=== PATIENT | female | born 1955 | race Caucasian/White ===

== ENCOUNTER 2016-08-19 16:14 | Emergency (ER) | payer OTHER ==
[2016-08-19 16:22] VITALS: TEMP 98.2; BMI 42.7
[2016-08-19 16:27] VITALS: BP 164/86
[2016-08-19] MEDS ORDERED: ZOFRAN 4 MG/2 ML IVP STA (16:40)
[2016-08-19] MEDS ORDERED: MORPHINE 2 MG/ML SYRINGE IVP STA (16:40)
[2016-08-19 16:46] LABS: BASOPHILS % (AUTO) 0.3 % (0.0-3.0); EOSINOPHILS # (AUTO) 0.1 K/ul (0.0-0.7); EOSINOPHILS % (AUTO) 1.3 % (0.0-7.0); HEMATOCRIT 39.8 % (37.0-47.0); HEMOGLOBIN 13.4 g/dl (12.0-16.0); IMMATURE GRANULOCYTE % (AUTO) 0.3 % (0.0-5.0); LYMPHOCYTES # (AUTO) 1.4 K/uL (0.60-3.4); LYMPHOCYTES % (AUTO) 23.1 (10.0-50.0); MEAN CORPUSCULAR HEMOGLOBIN 29.2 pg (27.0-31.0); MEAN CORPUSCULAR HGB CONC 33.7 (31.8-35.4); MEAN CORPUSCULAR VOLUME 86.7 fl (81.0-99.0); MONOCYTES # (AUTO) 0.4 K/uL (0.4-2.0); MONOCYTES % (AUTO) 6.9 (0-10); NEUTROPHILS # (AUTO) 4.2 K/ul (2.0-6.9); NEUTROPHILS % (AUTO) 68.1; PLATELET COUNT 247 10^3/uL (140-440); RED BLOOD COUNT 4.59 10^6/ul (4.20-5.40)
--- NOTE | 2016-08-19 16:53 | ED.PDOC ---
General ED Provider: Dr. JS REYES JR Chief Complaint: Chest Pain Stated Complaint: Dizzy,left chest pain radiates left arm, and back. [End]0600 pain began... worse noon today. chewed 2 Aspirin 325 mg.[End] 98.2 74 16 98% 175 /88 3/10 tender in area of pain no pain on rib compression Time Seen by Physician: 16:15 Mode of Arrival: Walk-In Information Source: Patient Exam Limitations: No limitations Primary Care Provider: RASHIDA BALTAZAR Nursing and Triage Documentation Reviewed and Agree: No Review of Systems - Review Of Systems Constitutional: Reports: Malaise Eyes: Reports: No symptoms Ears, Nose, Mouth, Throat: Reports: No symptoms Respiratory: Reports: No symptoms Cardiac: Reports: Chest pain GI: Reports: No symptoms, Other (hernia) : Reports: No symptoms Musculoskeletal: Reports: Muscle pain Skin: Reports: No symptoms Neurological: Reports: No symptoms Endocrine: Reports: No symptoms Hematologic/Lymphatic: Reports: No symptoms All Other Systems: Other Past Medical History - Past Medical History Endocrine: Reports: None Cardiovascular: Reports: CAD, [place], Hypertension, CHF, Other (viral myocarditis, cardiomyopathy) Respiratory: Reports: None Hematological: Reports: None Gastrointestinal: Reports: None Genitourinary: Reports: None Neuro/Psych: Reports: None Musculoskeletal: Reports: Arthritis Cancer: Reports: None Last Menstrual Period: N/A Other Pertinent Past Medical History: lupus, fibromyalgia - Surgical History General Surgical History: Reports: Tubal ligation - Family History Family History: Reports: None - Social History Smoking Status: Former smoker Hx Substance Use: No Alcohol Screening: None Physical Exam - Physical Exam Appearance: Well-appearing, Obese Pain Distress: Moderate Eyes: RENNY ENT: Ears normal, Nose normal, Oropharynx normal Neck: Supple Respiratory: Airway patent, Breath sounds equal, Respirations nonlabored, Crackles (cta after deep breath) Cardiovascular: RRR, Pulses normal, No rub, No murmur GI/: Soft, Nontender, No masses, Bowel sounds normal, No Organomegaly Musculoskeletal: Normal strength, ROM intact, No edema, No calf tenderness ( tender left 4th rib not tender on compression) Skin: Warm, Dry, Normal color Neurological: Sensation intact, Motor intact, Reflexes intact, Cranial nerves intact, Alert, Oriented Psychiatric: Affect appropriate, Mood appropriate Interpretation - Radiology Interpretation Radiology Interpretation By: Radiologist Radiology Results: Negative Exam Interpreted: CXR - EKG Interpretation Time of EKG #1: 16:15 Rate: Normal Rhythm: Sinus ST Segment: Other (RBBB LAFB nonacute q waves ant t inversion) Re-Evaluation - Re-Evaluation Time of Re-Evaluation: 19:59 (discussed cardiac cath- merlynetn states allefgic to contrast describes paralysis after Presumed CT angiography) Status: Improved Vital Signs Stable: Yes (note blood pressure still elevated) Pain Level: 0/10 Appearance: NAD Lungs: Clear Skin: Warm and Dry Neuro: Alert and Oriented X3 CV: RRR - Re-Evaluation Time of Re-Evaluation: 20:24 (dr baltazar calls speaks with paticatina ernestoashutosh agerees to direct admission - Dr Baltazar) Status: Improved Vital Signs Stable: Yes Physician Notification - Case Discussed Physician Notified: patric Time of Notification: 20:27 (disc with farhad at [facility], [place], operated by [facility] call with room number) Critical Care Note - Critical Care Note Total Time (mins): 20 Course - Course Hematology/Chemistry: 08/19/16 16:30 08/19/16 16:30 Orders, Labs, Meds: Lab Review 08/19/16 08/19/16 08/19/16 16:30 17:20 18:55 WBC 6.10 RBC 4.59 Hgb 13.4 Hct 39.8 MCV 86.7 MCH 29.2 MCHC 33.7 RDW Coeff of Haresh 13.6 Plt Count 247 Immature Gran % (Auto) 0.3 Neut % (Auto) 68.1 Lymph % (Auto) 23.1 [place] % (Auto) 6.9 Eos % (Auto) 1.3 Baso % (Auto) 0.3 Immature Gran # (Auto) 0.0 Neut # 4.2 Lymph # 1.4 [place] # 0.4 Eos # 0.1 Baso # 0.0 D-Dimer 1.34 Sodium 141 Potassium 3.9 Chloride 104 Carbon Dioxide 24 Anion Gap 16.9 BUN 13 Creatinine 0.80 Estimated GFR (MDRD) 72.00 BUN/Creatinine Ratio 16.25 Glucose 127 H Calcium 9.3 Total Bilirubin 0.77 AST 20 ALT 20 Alkaline Phosphatase 70 Total Creatine Kinase 27 Troponin I 0.0110 0.0160 B-Natriuretic Peptide 21 Total Protein 8.1 Albumin 4.0 Globulin 4.1 Albumin/Globulin Ratio 0.98 Urine Color Yellow Urine Clarity Clear Urine pH 5.0 Ur Specific [place] <=1.005 Urine Protein Negative Urine Glucose (UA) Negative Urine Ketones Negative Urine Blood Negative Urine Nitrite Negative Urine Bilirubin Negative Urine Urobilinogen 0.2 Ur Leukocyte Esterase Negative Orders Category Date Time Status EKG-(ED ONLY) Stat CARDIO 08/19/16 16:21 Completed ED IV/MEDIPORT/POWERPORT .ONCE EMERGENCY 08/19/16 16:40 Active B-TYPE NATRIURETIC PEPTIDE Stat LAB 08/19/16 16:30 Completed CBC W/ AUTO DIFF Stat LAB 08/19/16 16:30 Completed COMPREHENSIVE METABOLIC PANEL Stat LAB 08/19/16 16:30 Completed CREATINE KINASE Stat LAB 08/19/16 16:30 Completed D-DIMER Stat LAB 08/19/16 16:30 Completed TROPONIN I Stat LAB 08/19/16 16:30 Completed TROPONIN I Stat LAB 08/19/16 18:55 Completed UA [URINALYSIS C & S IF INDICATED] Stat LAB 08/19/16 17:20 Completed 0.9 % Sodium Chloride [Saline Flush] MEDS 08/19/16 16:40 Discontinued 1 syr IVF PRN PRN Hydrocodone Bit/Acetaminophen [[place] 7.5-325] MEDS 08/19/16 18:24 Discontinued 1 tab .ROUTE .STK-MED ONE Hydrocodone Bit/Acetaminophen [[place] 7.5-325] MEDS 08/19/16 18:26 Discontinued 1 tab PO ONCE STA Morphine Sulfate [Morphine 2 mg/ml Syringe] MEDS 08/19/16 16:40 Discontinued 2 mg IVP ONCE STA Ondansetron HCl/Pf [Zofran 4 mg/2 ml] MEDS 08/19/16 16:40 Discontinued 4 mg IVP ONCE STA CHEST, 1V AP ONLY Stat RADS 08/19/16 16:21 Completed Medications Discontinued Medications Generic Name Dose Route Start Last Admin Trade Name Freq PRN Reason Stop Dose Admin Acetaminophen/Hydrocodone Bitart 1 tab 08/19/16 18:26 08/19/16 18:28 [place] 7.5-325 PO 08/19/16 18:27 Not Given ONCE STA Morphine Sulfate 2 mg 08/19/16 16:40 08/19/16 17:08 Morphine 2 Mg/Ml Syringe IVP 08/19/16 16:41 Not Given ONCE STA Ondansetron HCl 4 mg 08/19/16 16:40 08/19/16 17:07 Zofran 4 Mg/2 Ml IVP 08/19/16 16:41 4 mg ONCE STA Administration Sodium Chloride 1 syr 08/19/16 16:40 08/19/16 17:08 Saline Flush IVF 1 syr PRN PRN Administration To flush IV Vital Signs: Temp Pulse Resp BP Pulse Ox 08/19/16 16:26 70 16 164/86 H 97 08/19/16 16:15 98.2 F 74 16 175/88 H 98 JAMAL Risk Score JAMAL Risk Score: Risk Score Odds of by 30D 0 0.1 (0.1-0.2) 1 0.3 (0.2-0.3) 2 0.4 (0.3-0.5) 3 0.7 (0.6-0.9) 4 1.2 (1.0-1.5) 5 2.2 (1.9-2.6) 6 3.0 (2.5-3.6) 7 4.8 (3.8-6.1) Departure - Departure Time of Disposition: 19:55 Disposition: TSF SHORT-TRM HOSP Discharge Problem: Chest pain Instructions: Chest Pain (ED), Hypertension (ED) Condition: Good Pt referred to PMD for follow-up: Yes Additional Instructions: transfer to [address] Follow up PMD within one week Please call your Family Physician as soon as possible to schedule a follow-up appointment. Please follow-up with Dr. Bernardo in 1-3 days. discuss cardiac catheterization and contrast allergy discuss increasing blood pressure mediations- may double metoprolol only if ok with your physician may continue [place] for pain if OK with PMD no evidence of hear damage from pain today return if pain worsens if short of breath or if fever over 101.0 Allergies/Adverse Reactions: Allergies Iodinated Contrast Media - Oral and Adverse Reaction (Verified 09/25/15 12:59) Sulfa (Sulfonamide Antibiotics) Adverse Reaction (Verified 09/25/15 12:53) Home Medications: Ambulatory Orders Furosemide [Furosemide] 40 mg PO DAILY 10/30/13 Hydrocodone/Acetaminophen [Hydrocodon-Acetaminoph 7.5-325] 7.5 mg PO TID PRN Prednisone [Prednisone] 5 mg PO QAM 10/30/13 Thyroid,Pork [[place] Thyroid] 30 mg PO DAILY 10/30/13 Prednisone [Prednisone] 2.5 mg PO QPM 09/25/15
--- NOTE | 2016-08-19 16:55 | DI ---
EXAM: Single view of the chest. History: Chest pain. Comparison: Chest radiograph 09/25/2015 Findings: Body habitus and portable projection make evaluation difficult. Heart size is prominent. No focal consolidation. No appreciable pleural fluid and no pneumothorax. No acute osseous abnor malities. Impression: No acute cardiopulmonary process.
[2016-08-19 17:13] LABS: ALBUMIN/GLOBULIN RATIO 0.98; ANION GAP 16.9; BILIRUBIN,TOTAL 0.77 mg/dL (0.00-1.20); BUN/CREATININE RATIO 16.25; CALCIUM 9.3 mg/dL (8.2-10.2); CREATININE 0.8 mg/dL (0.60-1.30); POTASSIUM 3.9 mmol/L (3.5-5.10); TOTAL PROTEIN 8.1 g/dL (5.8-8.1); TROPONIN I 0.011 ng/ml (0.0000-0.4000)
[2016-08-19 17:33] LABS: BILIRUBIN,URINE Negative (NEGATIVE); KETONES,URINE Negative (NEGATIVE); LEUKOCYTE ESTERASE ,URINE Negative (NEGATIVE); NITRITE,URINE Negative (NEGATIVE); PROTEIN,URINE Negative (NEGATIVE); URINE, BLOOD Negative (NEGATIVE)
[2016-08-19 17:35] LABS: ADD URINE MICROSCOPIC NO
[2016-08-19] MEDS ORDERED: NORCO 7.5-325 ONE (18:24)
[2016-08-19] MEDS ORDERED: NORCO 7.5-325 PO STA (18:26)
== END 2016-08-19 20:18 | disposition short-term general hospital (02) ==
LOC: ED 16:14
DX: R07.9 Chest pain, unspecified (principal); I10 Essential (primary) hypertension; R42 Dizziness and giddiness; I25.10 Atherosclerotic heart disease of native coronary artery without angina pectoris; I25.2 Old myocardial infarction; I50.9 Heart failure, unspecified; Z79.899 Other long term (current) drug therapy
CPT/HCPCS: 36415; 80053; 81001; 82550; 83880; 84484; 85025; 85379; 93005; 93010; 96374; 96375; 99284

== ENCOUNTER 2016-09-16 07:51 | Outpatient (RCR) ==
[2016-09-16 11:40] VITALS: TEMP 98.4
[2016-09-30 14:29] VITALS: BP 122/56
== END 2016-09-30 ==
LOC: CAR.REHAB 07:51
PROVIDERS: ATTEND Internal Medicine
DX: I25.2 Old myocardial infarction (principal); I50.9 Heart failure, unspecified
CPT/HCPCS: 93797

== ENCOUNTER 2016-10-01 09:14 | Outpatient (RCR) ==
[2016-10-30 08:38] VITALS: BP 128/54
== END 2016-10-31 ==
LOC: CAR.REHAB 09:14
PROVIDERS: ATTEND Internal Medicine
DX: I50.9 Heart failure, unspecified (principal); I25.2 Old myocardial infarction
CPT/HCPCS: 93797

== ENCOUNTER 2016-11-01 07:00 | Outpatient (RCR) | END 2016-11-30 | LOC: CAR.REHAB 07:00 | PROVIDERS: ATTEND Internal Medicine | DX: I25.2 Old myocardial infarction (principal); I50.9 Heart failure, unspecified ==

== ENCOUNTER 2016-12-01 08:21 | Outpatient (RCR) | END 2016-12-11 08:17 | disposition home or self-care (01) | LOC: CAR.REHAB 08:21 | PROVIDERS: ATTEND Internal Medicine | DX: I50.9 Heart failure, unspecified (principal); I25.2 Old myocardial infarction ==

== ENCOUNTER 2018-04-22 11:54 | Outpatient (CLI) | END 2018-04-22 11:55 | disposition home or self-care (01) | LOC: RAD 11:54 | PROVIDERS: ATTEND Internal Medicine | DX: Z78.0 Asymptomatic menopausal state (principal) ==

== ENCOUNTER 2018-10-07 02:28 | Inpatient (IN) ==
--- NOTE | 2018-10-07 03:21 | ED.PDOC ---
General ED Provider: Dr. PETER LACY-ER Chief Complaint: Chest Pain Stated Complaint: my bp meds were recalled and they were changed---i was having chest and shoulder pain earlier but now its gone Time Seen by Physician: 02:40 Mode of Arrival: Wheelchair Information Source: Patient, Family Exam Limitations: No limitations Primary Care Provider: YOSELIN FOOTE Nursing and Triage Documentation Reviewed and Agree: Yes Does patient meet sepsis criteria?: No System Inflammatory Response Syndrome: Not Applicable Sepsis Protocol: For patient's 13 years and over: Temp is 96.8 and below OR 101 and greater Pulse >90 BPM Resp >20/minute Acutely Altered Mental Status Are patient's symptoms suggestive of a new infection, such as: -Pneumonia -Skin, Soft Tissue -Endocarditis -UTI -Bone, Joint Infection -Implantable Device -Acute Abdominal Infection -Wound Infection -Meningitis -Blood Stream Catheter Infection -Unknown Cardiovascular Complaint Exam - Chest Pain Complaint/Exam Onset: Sudden Duration: 2 hrs Symptoms Are: Still present Initial Severity: Mild Current Severity: Mild Pain Radiates: Reports: Left shoulder Character: Reports: Dull, Aching, Burning, Heaviness, Pressure Aggravating: Reports: None Alleviating: Reports: Spontaneous resolution Associated Signs and Symptoms: Denies: Diaphoresis, Nausea, Vomiting, Fever, Palpitations, Cough, Hemoptysis, Back pain, Abdominal pain, Dizziness, Short of air, Calf pain, Calf swelling Related Surgical History: Reports: Cardiac Cath History of Healthcare-Acquired Pneumonia: Reports: No AMI/ACS Risk Factors: Reports: Myocardial Infarction Prior Care for this Complaint: No Recent Stress Test: No Recent Echo/LV Function: No JVD Present: No Subcutaneous Emphysema Present: No Diminshed Breath Sounds: No Reproducible Chest Wall Pain: No Bilateral Pulses Present: Yes Unequal Pulses Noted: No If Risk Factors for AMI/ACS Consider: EKG, Cardiac Enzymes, Aspirin Differential Diagnoses: ACS Quality Indicator For Non-Traumatic Chest Pain/Syncope: EKG Performed Review of Systems - Review Of Systems Constitutional: Reports: No symptoms Eyes: Reports: No symptoms Ears, Nose, Mouth, Throat: Reports: No symptoms Respiratory: Reports: No symptoms Cardiac: Reports: Chest pain GI: Reports: No symptoms : Reports: No symptoms Musculoskeletal: Reports: No symptoms Skin: Reports: No symptoms Neurological: Reports: No symptoms Endocrine: Reports: No symptoms Hematologic/Lymphatic: Reports: No symptoms All Other Systems: Reviewed and Negative Past Medical History - Past Medical History Previously Healthy: No Endocrine: Reports: None Cardiovascular: Reports: CAD, [place], Hypertension, CHF, Other (viral myocarditis, cardiomyopathy) Respiratory: Reports: None Hematological: Reports: None Gastrointestinal: Reports: None Genitourinary: Reports: None Neuro/Psych: Reports: None Musculoskeletal: Reports: Arthritis Cancer: Reports: None Last Menstrual Period: UNKNOWN Other Pertinent Past Medical History: lupus, fibromyalgia - Surgical History General Surgical History: Reports: Tubal ligation - Family History Family History: Reports: None - Social History Smoking Status: Former smoker Hx Substance Use: No Alcohol Screening: None - Immunizations Tetanus Shot up to Date: Yes Physical Exam - Physical Exam Appearance: Well-appearing, No pain distress, Well-nourished Eyes: RENNY, EOMI, Conjunctiva clear ENT: Ears normal Neck: Supple Respiratory: Airway patent, Breath sounds clear, Breath sounds equal, Respirations nonlabored Cardiovascular: RRR, Pulses normal, No rub, No murmur GI/: Soft, Nontender, No masses, Bowel sounds normal, No Organomegaly Musculoskeletal: Normal strength, ROM intact, No edema, No calf tenderness Skin: Warm, Dry, Normal color Neurological: Sensation intact, Motor intact, Reflexes intact, Cranial nerves intact, Alert, Oriented Psychiatric: Affect appropriate, Mood appropriate Interpretation - Radiology Interpretation Radiology Interpretation By: ED Physician Radiology Results: Negative Exam Interpreted: Portable CXR - EKG Interpretation Time of EKG #1: 02:30 Rate: Normal Rhythm: Sinus Ectopy: None Interpretation: snus rythym Physician Notification - Case Discussed Physician Notified: dr foote Time of Notification: 03:30 Critical Care Note - Critical Care Note Total Time (mins): 45 Course - Course Hematology/Chemistry: 10/07/18 02:42 10/07/18 02:42 Orders, Labs, Meds: Lab Review 10/07/18 10/07/18 10/07/18 02:42 02:42 02:42 WBC 5.90 RBC 4.04 L Hgb 12.1 Hct 36.5 L MCV 90.3 MCH 30.0 MCHC 33.2 RDW Coeff of Haresh 13.3 Plt Count 221 Immature Gran % (Auto) 0.5 Neut % (Auto) 51.6 Lymph % (Auto) 32.5 [place] % (Auto) 9.5 Eos % (Auto) 5.4 Baso % (Auto) 0.5 Immature Gran # (Auto) 0.0 Neut # (Auto) 3.0 Lymph # (Auto) 1.9 [place] # (Auto) 0.6 Eos # (Auto) 0.3 Baso # (Auto) 0.0 Sodium 136.2 Potassium 4.12 Chloride 103.6 Carbon Dioxide 24.0 Anion Gap 12.72 BUN 18.1 H Creatinine 0.64 Estimated GFR (MDRD) 93.00 BUN/Creatinine Ratio 28.28 Glucose 114.9 H Calcium 9.56 Total Bilirubin 0.83 AST 31.9 ALT 19.3 Alkaline Phosphatase 80.5 Total Creatine Kinase 29.5 L Troponin I 0.033 Total Protein 7.95 Albumin 4.43 Globulin 3.52 Albumin/Globulin Ratio 1.25 Free T4 10/07/18 02:42 WBC RBC Hgb Hct MCV MCH MCHC RDW Coeff of Haresh Plt Count Immature Gran % (Auto) Neut % (Auto) Lymph % (Auto) [place] % (Auto) Eos % (Auto) Baso % (Auto) Immature Gran # (Auto) Neut # (Auto) Lymph # (Auto) [place] # (Auto) Eos # (Auto) Baso # (Auto) Sodium Potassium Chloride Carbon Dioxide Anion Gap BUN Creatinine Estimated GFR (MDRD) BUN/Creatinine Ratio Glucose Calcium Total Bilirubin AST ALT Alkaline Phosphatase Total Creatine Kinase Troponin I Total Protein Albumin Globulin Albumin/Globulin Ratio Free T4 1.40 Orders Category Date Time Status ADMIT OBSERVATION [PLACE PATIENT OBSERVATION] .TO ADMISSION 10/07/18 03:32 Active SCU (MONITORED BED) EKG-(ED ONLY) Stat CARDIO 10/07/18 02:33 Completed EKG-(IP & OP ONLY) DAILY CARDIO 10/08/18 06:00 Ordered EKG-(IP & OP ONLY) DAILY CARDIO 10/09/18 06:00 Ordered OXYGEN Routine CARDIO 10/07/18 03:34 Ordered ACTIVITY .BR with BRP CARE 10/07/18 03:33 Active INTAKE & OUTPUT Q8HR CARE 10/07/18 03:33 Active TELEMETRY MONITORING TELE CARE 10/07/18 03:32 Active VITAL SIGNS Q4HR CARE 10/07/18 03:33 Active CARDIAC DIET DIETARY 10/07/18 Breakfast Ordered Teaching Associate [ED WOOD TILE INSTALLATION HELPER APPLIED] .ONCE EMERGENCY 10/07/18 02:34 Active ED IV/MEDIPORT/POWERPORT .ONCE EMERGENCY 10/07/18 02:33 Active CBC W/ AUTO DIFF DAILY@0600 LAB 10/07/18 06:00 Ordered CBC W/ AUTO DIFF DAILY@0600 LAB 10/08/18 06:00 Ordered CBC W/ AUTO DIFF Stat LAB 10/07/18 02:42 Completed COMPREHENSIVE METABOLIC PANEL DAILY@0600 LAB 10/07/18 06:00 Ordered COMPREHENSIVE METABOLIC PANEL DAILY@0600 LAB 10/08/18 06:00 Ordered COMPREHENSIVE METABOLIC PANEL Stat LAB 10/07/18 02:42 Completed CREATINE KINASE Q8H LAB 10/07/18 09:45 Ordered CREATINE KINASE Q8H LAB 10/07/18 17:45 Ordered CREATINE KINASE Stat LAB 10/07/18 02:42 Completed FREE T4 (FREE THYROXINE) Stat LAB 10/07/18 02:42 Completed THYROID STIMULATING HORMONE Stat LAB 10/07/18 02:42 Received TROPONIN I Q8H LAB 10/07/18 09:45 Ordered TROPONIN I Q8H LAB 10/07/18 17:45 Ordered TROPONIN I Stat LAB 10/07/18 02:42 Completed 0.9 % Sodium Chloride [Saline Flush] MEDS 10/07/18 02:33 Ordered 1 syr IVF PRN PRN Acetaminophen [Tylenol] MEDS 10/07/18 03:33 Ordered 650 mg PO Q4H PRN Amlodipine Besylate [Norvasc] MEDS 10/07/18 03:28 Discontinued 10 mg PO ONCE STA Amlodipine Besylate [Norvasc] MEDS 10/07/18 03:34 Discontinued 5 mg .ROUTE .STK-MED ONE Enoxaparin Sodium [Lovenox] MEDS 10/07/18 09:00 Ordered 40 mg SUBCUT DAILY Hydrocodone Bit/Acetaminophen [[place] 7.5-325] MEDS 10/07/18 09:00 Ordered DOSE tab PO TID Metoprolol Tartrate [Lopressor] MEDS 10/07/18 09:00 Ordered 25 mg PO BID Nitroglycerin [Nitrostat] MEDS 10/07/18 03:35 Ordered 0.4 mg SL Q5MIN X 3 DOSES PRN Prednisone MEDS 10/07/18 21:00 Ordered 1 mg PO BEDTIME Prednisone MEDS 10/07/18 09:00 Ordered 2 mg PO DAILY Thyroid,Pork [[place] Thyroid] MEDS 10/07/18 09:00 Ordered 30 mg PO DAILY RESUSCITATION STATUS Routine OTHERS 10/07/18 03:33 Ordered CXR [CHEST, 1V AP ONLY] Stat RADS 10/07/18 03:05 Ordered Medications Generic Name Dose Route Start Last Admin Trade Name Carlos PRN Reason Stop Dose Admin Acetaminophen 650 mg 10/07/18 03:33 Tylenol PO Q4H PRN Mild Pain Hydrocodone Bitart/Acetaminophen tab 10/07/18 09:00 [place] 7.5-325 PO TID MARLENE Enalaprilat 1.25 mg 10/07/18 03:39 Vasotec Iv IVP ONCE PRN Hypertensive Emergency Enoxaparin Sodium 40 mg 10/07/18 09:00 Lovenox SUBCUT DAILY MARLENE Labetalol HCl 20 mg 10/07/18 03:37 Trandate IVP ONCE PRN Hypertensive Emergency Metoprolol Tartrate 25 mg 10/07/18 09:00 Lopressor PO BID MARLENE Nitroglycerin 0.4 mg 10/07/18 03:35 Nitrostat SL Q5MIN X 3 DOSES PRN Chest Pain Non-Formulary Medication 30 mg 10/07/18 09:00 Thyroid,Pork [[place] Thyroid] PO DAILY MARLENE Prednisone 1 mg 10/07/18 21:00 Prednisone PO BEDTIME MARLENE Prednisone 2 mg 10/07/18 09:00 Prednisone PO DAILY MARLENE Sodium Chloride 1 syr 10/07/18 02:33 Saline Flush IVF PRN PRN To flush IV Discontinued Medications Generic Name Dose Route Start Last Admin Trade Name Carlos PRN Reason Stop Dose Admin Amlodipine Besylate 10 mg 10/07/18 03:28 10/07/18 03:39 Norvasc PO 10/07/18 03:29 10 mg ONCE STA Administration Vital Signs: Temp Pulse Resp BP Pulse Ox 10/07/18 02:29 98.1 F 66 20 211/117 H 97 JAMAL Risk Score JAMAL Risk Score: Risk Score Odds of by 30D 0 0.1 (0.1-0.2) 1 0.3 (0.2-0.3) 2 0.4 (0.3-0.5) 3 0.7 (0.6-0.9) 4 1.2 (1.0-1.5) 5 2.2 (1.9-2.6) 6 3.0 (2.5-3.6) 7 4.8 (3.8-6.1) Departure - Departure Time of Disposition: 03:31 Disposition: PLACED OBSERVATION Discharge Problem: Chest pain HTN (hypertension) Qualifiers: Hypertension type: essential hypertension Qualified Code(s): I10 - Essential ( primary) hypertension Condition: Stable Pt referred to PMD for follow-up: Yes IPMP verified?: No Allergies/Adverse Reactions: Allergies Iodinated Contrast- Oral and IV Dye Adverse Reaction (Verified 10/07/18 02:48) Sulfa (Sulfonamide Antibiotics) Adverse Reaction (Verified 10/07/18 02:48) Home Medications: Ambulatory Orders Furosemide 40 mg PO DAILY PRN 10/30/13 Hydrocodone/Acetaminophen [Hydrocodon-Acetaminoph 7.5-325] 7.5 mg PO TID Thyroid,Pork [[place] Thyroid] 30 mg PO DAILY 10/30/13 Losartan Potassium 100 mg PO DAILY 10/07/18 Metoprolol Tartrate 25 mg PO BID 10/07/18 Prednisone 1 mg PO BEDTIME 10/07/18 Prednisone 2 mg PO DAILY 10/07/18 Transfer Form Completed: No Disposition Discussed With: Patient, Family
[2018-10-07] MEDS ORDERED: NORVASC PO STA (03:28)
[2018-10-07] MEDS ORDERED: TYLENOL PO PRN (03:33)
[2018-10-07] MEDS ORDERED: NORVASC ONE (03:34)
[2018-10-07] MEDS ORDERED: NITROSTAT SL PRN (03:35)
[2018-10-07] MEDS ORDERED: TRANDATE IVP PRN (03:37)
[2018-10-07] MEDS ORDERED: VASOTEC IV IVP PRN (03:39)
[2018-10-07 04:35] VITALS: BMI 40.4
[2018-10-07] MEDS ORDERED: NORCO 7.5-325 PO PRN (06:28)
--- NOTE | 2018-10-07 07:04 | DI ---
EXAM: Single frontal view of the chest HISTORY: Chest pain. COMPARISON: Chest x-ray 08/19/2016 and multiple priors FINDINGS: Cardiomediastinal silhouette is unchanged. There is no pneumothorax or pleural effusion. There is no consolidation, nodule or mass. The osseous structures are unremarkable. IMPRESSION: No acute cardiopulmonary process.
[2018-10-07] MEDS ORDERED: NON-FORMULARY MEDICATION PO SCH (08:00)
[2018-10-07] MEDS ORDERED: NON-FORMULARY MEDICATION (Furosemide [Furosemide] 40 MG) PO PRN (08:01)
[2018-10-07] MEDS ORDERED: LASIX IVP STA (08:18)
[2018-10-07] MEDS ORDERED: LOPRESSOR PO SCH (09:00)
[2018-10-07] MEDS ORDERED: NON-FORMULARY MEDICATION (Losartan Potassium [Losartan Potassium] 100 MG) PO SCH (09:00)
[2018-10-07] MEDS ORDERED: NORCO 7.5-325 PO SCH (09:00)
--- NOTE | 2018-10-07 09:09 | PCM.PROG ---
Attending Provider: ATTENDING PROVIDER: Dr. YOSELIN MUJICA This patient is seen with Samanta Kebede, Nurse Practitioner. DATE OF SERVICE: 10/07/18 SUBJECTIVE: This 63 year old WHITE/ F was hospitalized 10/07/18. The patient is sitting in bed resting comfortably. She is no longer experiencing chest pain. Blood pressure has improved but still elevated. The patient in no distress. REVIEW OF SYSTEMS: CONSTITUTIONAL: No night sweats. No fatigue, malaise, lethargy. No fever or chills. HEENT: Eyes: No visual changes. No eye pain. No eye discharge. ENT: No runny nose. No epistaxis. No sinus pain. No odynophagia. No congestion. RESPIRATORY: No cough, no congestion. No hemoptysis. No shortness of breath. CARDIOVASCULAR: No angina symptoms. No CHF symptoms. Atypical chest pain. No palpitations. No orthopnea.. GASTROINTESTINAL: No abdominal pain. No nausea or vomiting. No diarrhea or constipation. No hematemesis. No hematochezia. GENITOURINARY: No urgency. No frequency. No dysuria. No hematuria. No obstructive symptoms. No discharge. No pain. No significant abnormal bleeding. MUSCULOSKELETAL: No musculoskeletal pain; no joint swelling. NEUROLOGICAL: Awake, alert, oriented to time, place and person. No headache. No neck pain. No syncope. No seizures. No dizziness. PSYCHIATRIC: Anxious. No depression. No suicidal thoughts. No homicidal thoughts. SKIN: No rash. No lesions. No wounds. ENDOCRINE: No unexplained weight loss. No weight gain. HEMATOLOGIC/LYMPHATIC: No anemia. No purpura. No petechiae. No prolonged or excessive bleeding. No palpable lymph nodes. PHYSICAL EXAMINATION: GENERAL: The patient is awake, alert and oriented, sitting in bed in no distress. VITAL SIGNS: Temperature 97.5 F, Pulse 59, Respiratory Rate 15, BP 156/80, Pulse Ox 99% HEENT: Head normocephalic, atraumatic. Eyes: Extraocular muscles are intact. Pupils are equal, round and reactive to light and accommodation. Ears: No lesions. Nose appeared normal. Throat: No exudate or erythema. NECK: Supple. No JVD, no carotid bruit. No lymphadenopathy or thyromegaly. LUNGS: Diminished breath sounds. Clear to auscultation. Percussion note normal. Chest symmetrical. HEART: S1, S2, no S3. No murmurs. No cyanosis or clubbing. No ascites. Pulses: Dorsalis pedis and posterior tibial pulses +1 to +2 both sides. ABDOMEN: Soft. Non-tender. Bowel sounds active. No CVA tenderness. No mass felt. EXTREMITIES: No edema. Full range of motion of all extremities, equal. NEUROLOGIC: No focal deficit. Cranial nerves II through XII are grossly intact. No headache, no double vision or headache. SKIN: Not dry. Intact. Turgor-normal. LYMPHATIC: No palpable lymph nodes/no lymphedema. MUSCULOSKELETAL: Normal joints with no swelling. Muscle tone is normal. LAB REVIEW: 10/07/18 06:15 10/07/18 06:15 10/07/18 06:15: Sodium 139.9, Potassium 3.78, Chloride 107.5 H, Carbon Dioxide 24.2, Anion Gap 11.98, BUN 15.8, Creatinine 0.60, Estimated GFR (MDRD) 100.00, BUN/Creatinine Ratio 26.33, Glucose 100.6, Calcium 9.59, Total Bilirubin 0.82, AST 20.1, ALT 17.4, Alkaline Phosphatase 84.1, Total Protein 7.45, Albumin 4.20 , Globulin 3.25, Albumin/Globulin Ratio 1.29 10/07/18 06:15: WBC 4.61, RBC 3.88 L, Hgb 11.6 L, Hct 34.8 L, MCV 89.7, MCH 29.9 , MCHC 33.3, RDW Coeff of Haresh 13.3, Plt Count 210, Immature Gran % (Auto) 0.2, Neut % (Auto) 51.3, Lymph % (Auto) 34.9, Bryan % (Auto) 7.8, Eos % (Auto) 5.6, Baso % (Auto) 0.2, Immature Gran # (Auto) 0.0, Neut # (Auto) 2.4, Lymph # (Auto ) 1.6, Bryan # (Auto) 0.4, Eos # (Auto) 0.3, Baso # (Auto) 0.0 10/07/18 02:42: TSH 2.600 10/07/18 02:42: Free T4 1.40 10/07/18 02:42: Total Creatine Kinase 29.5 L, Troponin I 0.033 10/07/18 02:42: Sodium 136.2, Potassium 4.12, Chloride 103.6, Carbon Dioxide 24.0, Anion Gap 12.72, BUN 18.1 H, Creatinine 0.64, Estimated GFR (MDRD) 93.00, BUN/Creatinine Ratio 28.28, Glucose 114.9 H, Calcium 9.56, Total Bilirubin 0.83 , AST 31.9, ALT 19.3, Alkaline Phosphatase 80.5, Total Protein 7.95, Albumin 4.43, Globulin 3.52, Albumin/Globulin Ratio 1.25 10/07/18 02:42: WBC 5.90, RBC 4.04 L, Hgb 12.1, Hct 36.5 L, MCV 90.3, MCH 30.0, MCHC 33.2, RDW Coeff of Haresh 13.3, Plt Count 221, Immature Gran % (Auto) 0.5, Neut % (Auto) 51.6, Lymph % (Auto) 32.5, Bryan % (Auto) 9.5, Eos % (Auto) 5.4, Baso % (Auto) 0.5, Immature Gran # (Auto) 0.0, Neut # (Auto) 3.0, Lymph # (Auto ) 1.9, Bryan # (Auto) 0.6, Eos # (Auto) 0.3, Baso # (Auto) 0.0 ASSESSMENT: 1. Hypertension uncontrolled. 2. Hypothyroidism. 3. Leg edema. 4. Obesity. 5. Former smoker. PLAN: 1. Schedule echocardiogram and stress echo Sestamibi tomorow - the patient has multiple risk factors for CAD. 2. Restart Losartan and Norvasc. 3. Lasix today 40 mg - one time. Plan and coordination of the patient's care discussed in the presence of Manager Clinical and nurse. CONDITION: Stable SCRIBED BY: FE FORDE Informatics Physician scribed while in presence of service performed by Dr. Mujica/Samanta Kebede APRN on 10/07/18 ([id number])
[2018-10-07] MEDS: PREDNISONE PO SCH (09:11)
[2018-10-07] MEDS: NON-FORMULARY MEDICATION (Amlodipine Besylate [Norvasc] 5 MG) PO SCH ×2 (09:12→20:12)
[2018-10-07] MEDS: THYROID PORK 60 MG PO SCH (09:14)
[2018-10-07] MEDS: LOVENOX SUBCUT SCH (09:15)
[2018-10-07] MEDS: NORCO 7.5-325 PO PRN ×3 (09:27→23:00)
--- NOTE | 2018-10-07 14:11 | PN ---
DATE OF SERVICE: 10/07/18 SUBJECTIVE: The patient was seen and examined with the nurse practitioner. 63-year-old white female hospitalized with severe hypertension and chest pain. The patient' s blood pressure medication will be restarted. PHYSICAL EXAMINATION: HEENT: Head normocephalic, atraumatic. Eyes: Extraocular muscles are intact. Pupils are equal, round and reactive to light and accommodation. Ears: No lesions. Nose appeared normal. Throat: No exudate or erythema. NECK: Supple. No JVD, no carotid bruit. No lymphadenopathy or thyromegaly. LUNGS: Decreased breath sounds. Clear to auscultation. Percussion note normal. Chest symmetrical. HEART: S1, S2, no S3. No murmurs. No cyanosis or clubbing. No ascites. Pulses: Dorsalis pedis and posterior tibial pulses +1 to +2 bilaterally. ABDOMEN: Soft. Nontender. Bowel sounds active. No CVA tenderness. No mass felt. EXTREMITIES: No edema. Full range of motion of all extremities, equal. NEUROLOGIC: No focal deficit. Cranial nerves II through XII are grossly intact. No headache, no double vision or headache. SKIN: Not dry. Intact. Turgor - normal. LYMPHATIC: No palpable lymph nodes/no lymphedema. MUSCULOSKELETAL: Normal joints with no swelling. Muscle tone is normal. Chest pain was equivocal for coronary insufficiency. The patient has several risk factors. The patient is noncompliant of diet medications, lifestyle. She is morbidly obese. She is high risk for acute myocardial and cerebrovascular event explained to her. The patient is stubborn, argued a lot and eventually has decided to stay. Further workup - the patient will undergo echo and stress echo Sestambi. EKG is unchanged. Sinus rhythm, no acute changes. Cardiac markers are negative for acute myocardial event. CONDITION: Stable. TIME SPENT: More than 30 minutes. Plan and coordination of the patient's care discussed in the presence of nurse. RAYMOND
[2018-10-07] MEDS: LOPRESSOR PO SCH (15:40)
[2018-10-07] MEDS ORDERED: PREDNISONE PO SCH (21:00)
[2018-10-07] MEDS ORDERED: NORVASC PO SCH (21:00)
[2018-10-08 05:14] VITALS: BP 148/76; TEMP 97.8
[2018-10-08] MEDS: THYROID PORK 60 MG PO SCH (05:34)
[2018-10-08] MEDS: NORCO 7.5-325 PO PRN (07:02)
[2018-10-08] MEDS: PREDNISONE PO SCH (07:04)
[2018-10-08] MEDS ORDERED: LASIX TAB PO PRN (08:31)
[2018-10-08] MEDS ORDERED: COZAAR PO SCH (09:00)
[2018-10-08] MEDS ORDERED: NORCO 7.5-325 PO PRN (09:00)
[2018-10-08] MEDS ORDERED: PREDNISONE PO SCH ×2 (09:00→21:00)
[2018-10-08] MEDS ORDERED: NORVASC PO SCH ×2 (09:00)
--- NOTE | 2018-10-08 09:11 | PCM.PROG ---
Attending Provider: ATTENDING PROVIDER: Dr. YOSELIN MUJICA This patient is seen with Samanta Kebede, Nurse Practitioner. DATE OF SERVICE: 10/08/18 SUBJECTIVE: This 63 year old WHITE/ F was hospitalized 10/07/18. The patient is having stress Sestamibi this morning. No chest pain through the night. Cardiac markers have all been negative. Blood pressure improved. REVIEW OF SYSTEMS: CONSTITUTIONAL: No night sweats. No fatigue, malaise, lethargy. No fever or chills. HEENT: Eyes: No visual changes. No eye pain. No eye discharge. ENT: No runny nose. No epistaxis. No sinus pain. No odynophagia. No congestion. RESPIRATORY: No cough, no congestion. No hemoptysis. No shortness of breath. CARDIOVASCULAR: No angina symptoms. No CHF symptoms. No atypical chest pain for CAD. No palpitations. No orthopnea.. GASTROINTESTINAL: No abdominal pain. No nausea or vomiting. No diarrhea or constipation. No hematemesis. No hematochezia. GENITOURINARY: No urgency. No frequency. No dysuria. No hematuria. No obstructive symptoms. No discharge. No pain. No significant abnormal bleeding. MUSCULOSKELETAL: Back pain, neck pain. NEUROLOGICAL: Awake, alert, oriented to time, place and person. No headache. No neck pain. No syncope. No seizures. No dizziness. PSYCHIATRIC: Anxious. No depression. No suicidal thoughts. No homicidal thoughts. SKIN: No rash. No lesions. No wounds. ENDOCRINE: No unexplained weight loss. No weight gain. HEMATOLOGIC/LYMPHATIC: No anemia. No purpura. No petechiae. No prolonged or excessive bleeding. No palpable lymph nodes. PHYSICAL EXAMINATION: GENERAL: The patient is awake, alert and oriented, lying in bed in no distress. VITAL SIGNS: Temperature 97.8 F, Pulse 73, Respiratory Rate 14, BP 148/76, Pulse Ox 99% HEENT: Head normocephalic, atraumatic. Eyes: Extraocular muscles are intact. Pupils are equal, round and reactive to light and accommodation. Ears: No lesions. Nose appeared normal. Throat: No exudate or erythema. NECK: Supple. No JVD, no carotid bruit. No lymphadenopathy or thyromegaly. LUNGS: Diminished breath sounds. Clear to auscultation. Percussion note normal. Chest symmetrical. HEART: S1, S2, no S3. No murmurs. No cyanosis or clubbing. No ascites. Pulses: Dorsalis pedis and posterior tibial pulses +1 to +2 both sides. ABDOMEN: Soft. Non-tender. Bowel sounds active. No CVA tenderness. No mass felt. EXTREMITIES: No edema. Full range of motion of all extremities, equal. NEUROLOGIC: No focal deficit. Cranial nerves II through XII are grossly intact. No headache, no double vision or headache. SKIN: Not dry. Intact. Turgor-normal. LYMPHATIC: No palpable lymph nodes/no lymphedema. MUSCULOSKELETAL: Normal joints with no swelling. Muscle tone is normal. LAB REVIEW: 10/08/18 05:40 10/08/18 05:40 10/08/18 05:40: Sodium 136.4, Potassium 3.67, Chloride 101.9, Carbon Dioxide 24.9, Anion Gap 13.27, BUN 14.3, Creatinine 0.75, Estimated GFR (MDRD) 78.00, BUN/Creatinine Ratio 19.06, Glucose 100.8, Calcium 9.43, Total Bilirubin 1.11, AST 21.7, ALT 18.4, Alkaline Phosphatase 86.7, Total Protein 7.70, Albumin 4.37 , Globulin 3.33, Albumin/Globulin Ratio 1.31 10/08/18 05:40: WBC 5.37, RBC 4.04 L, Hgb 12.1, Hct 36.2 L, MCV 89.6, MCH 30.0, MCHC 33.4, RDW Coeff of Haresh 13.4, Plt Count 239, Immature Gran % (Auto) 0.4, Neut % (Auto) 47.8, Lymph % (Auto) 36.5, [place] % (Auto) 8.9, Eos % (Auto) 5.8, Baso % (Auto) 0.6, Immature Gran # (Auto) 0.0, Neut # (Auto) 2.6, Lymph # (Auto ) 2.0, [place] # (Auto) 0.5, Eos # (Auto) 0.3, Baso # (Auto) 0.0 10/07/18 17:57: Total Creatine Kinase 28.2 L, Troponin I 0.043 10/07/18 10:00: Total Creatine Kinase 33.1, Troponin I 0.058 10/07/18 06:15: Hemoglobin A1c 5.03 ASSESSMENT: 1. Hypertension uncontrolled. 2. Hypothyroidism. 3. Leg edema. 4. Obesity. 5. Former smoker. PLAN: 1. Stress Sestamibi this morning. Plan and coordination of the patient's care discussed in the presence of Scanning Coordinator and nurse. CONDITION: Stable SCRIBED BY: FE FORDE Mechanical Shovel Operator scribed while in presence of service performed by Dr. Mujica/Samanta Kebede APRN on 10/08/18 ([id number])
[2018-10-08] MEDS: LOVENOX SUBCUT SCH (10:54)
[2018-10-08] MEDS ORDERED: LOPRESSOR PO STA (10:59)
[2018-10-08] MEDS: LOPRESSOR PO SCH (11:05)
--- NOTE | 2018-10-08 11:36 | NM ---
Cardiac Stress Test HISTORY: Chest pain. Hypertension. COMPARISON: None of this type. TECHNIQUE: Resting: The patient was injected with 10.6 mCi of 99m technetium Sestamibi (Cardiolite) intravenous ly after which a "resting" SPECT study of the heart was performed. Stress: The patient was stressed using a Conrado protocol and at the appropriate time injected with 30 .5 mCi of 99m technetium Sestamibi (Cardiolite) after which a "stress" SPECT study of the heart was p erformed. Gated images of the heart were also obtained to assess wall motion and calculate ejection fraction. For details of the stress protocol employed, reference is made to the separate report of t he performing physician. FINDINGS: The stress perfusion images demonstrate decreased activity primarily in the inferolateral wall with extension into contiguous inferior wall and apex. The resting images show improvement in p erfusion particularly in the inferolateral wall suggesting ischemia. The resting perfusion images de monstrate no evidence of significant redistribution/ischemia elsewhere. The left ventricular ejection fraction (LVEF) is 73 %. IMPRESSION: 1. Left ventricular myocardial perfusion demonstrates ischemic changes centered in the inferolateral wall with extension to contiguous inferior wall and apex. 2. The left ventricular ejection fraction (LVEF) is 73 %.
[2018-10-08] MEDS ORDERED: LOPRESSOR PO SCH (15:00)
--- NOTE | 2018-10-08 15:00 | CM.DICTOOL ---
ADMISSION: 10/07/18 03:37 DISCHARGE: 10/08/18 DATE OF SERVICE: 10/08/18 FINAL DIAGNOSIS CHEST PAIN-RESOLVED HYPERTENSION-IMPROVED CAD AND AL CHF VIRAL MYOCARDITIS CARDIOMYOPATHY FIBROMYALGIA LUPUS HERNIA TUBAL LIGATION LAST VITALS Temp Pulse Resp BP Pulse Ox 97.8 F 73 14 148/76 H 99 10/08/18 05:13 10/08/18 05:13 10/08/18 05:13 10/08/18 05:13 10/08/18 05:13 TAKE THESE MEDICATIONS AT HOME Amlodipine Besylate (Norvasc) 5 mg PO BID [facility] Last Admin: 10/08/18 10:54 Dose: 5 mg Aspirin 81 mg PO DIALY Furosemide (Lasix Tab) 20 mg PO DAILY Hydrocodone Bitart/Acetaminophen ([place] 7.5-325) 1 tab PO TID PRN PRN Reason: Pain Losartan Potassium (Cozaar) 100 mg PO DAILY [facility] Last Admin: 10/08/18 10:53 Dose: 100 mg Metoprolol Tartrate (Lopressor) 25 mg PO BID [facility] Nitroglycerin (Nitrostat) 0.4 mg SL Q5MIN X 3 DOSES PRN PRN Reason: Chest Pain Thyroid,Pork [Ashton Thyroid] 60 mg PO QDAC [facility] Last Admin: 10/08/18 05:34 Dose: 60 mg Prednisone (Prednisone) 1 mg PO BEDTIME MARLENE Prednisone (Prednisone) 2 mg PO DAILYWM [facility] ALLERGIES Iodinated Contrast- Oral and IV Dye Adverse Reaction (Verified 10/07/18 02:48) Sulfa (Sulfonamide Antibiotics) Adverse Reaction (Verified 10/07/18 02:48) NEW PRESCRIPTIONS: Nitroglycerin 0.4 mg SL DIRECTED #30 tab.subl 10/08/18 Potassium Chloride [K-Dur] 20 meq PO DAILY #30 tab 10/08/18 HOME MEDICATION CHANGES Furosemide [Lasix Tab] 40 MG, TAKE ONE-HALF TABLET (20 MG) OF YOUR CURRENT 40 MG TABLET EVERY MORNING ON AN EMPTY STOMACH SMOKING: FORMER SMOKER DISEASE SPECIFIC EDUCATION: NEED FOR REFERRAL FOR POSSIBLE CARDIAC CATH (PATIENT DECLINED REFERRAL) PATIENT'S BMI WAS DISCUSSED. WEIGHT LOSS WAS ADVISED WEIGHT LOSS DIET NTG PRN FOR CHEST PAIN PATIENT WAS ADVISED TO GO DIRECTLY TO THE ER IF NO RELIEF FROM NTG X3 PATIENT WAS ALSO ADVISED TO GO DIRECTLY TO ER AT ONSET OF CHEST PAIN IF SHE FEELS IT APPROPRIATE HOME MEDICATIONS LIFESTYLE CHANGES TO REDUCE RISKS OF CAD MEDICATON COMPLIANCE FOLLOW UP LAB REVIEW: 10/08/18 05:40 10/08/18 05:40 10/08/18 05:40: Sodium 136.4, Potassium 3.67, Chloride 101.9, Carbon Dioxide 24.9, Anion Gap 13.27, BUN 14.3, Creatinine 0.75, Estimated GFR (MDRD) 78.00, BUN/Creatinine Ratio 19.06, Glucose 100.8, Calcium 9.43, Total Bilirubin 1.11, AST 21.7, ALT 18.4, Alkaline Phosphatase 86.7, Total Protein 7.70, Albumin 4.37 , Globulin 3.33, Albumin/Globulin Ratio 1.31 10/08/18 05:40: WBC 5.37, RBC 4.04 L, Hgb 12.1, Hct 36.2 L, MCV 89.6, MCH 30.0, MCHC 33.4, RDW Coeff of Haresh 13.4, Plt Count 239, Immature Gran % (Auto) 0.4, Neut % (Auto) 47.8, Lymph % (Auto) 36.5, [place] % (Auto) 8.9, Eos % (Auto) 5.8, Baso % (Auto) 0.6, Immature Gran # (Auto) 0.0, Neut # (Auto) 2.6, Lymph # (Auto ) 2.0, [place] # (Auto) 0.5, Eos # (Auto) 0.3, Baso # (Auto) 0.0 10/07/18 17:57: Total Creatine Kinase 28.2 L, Troponin I 0.043 PLAN: DISCHARGE HOME TODAY, 10/08/[address] MUJICA IN HIS OFFICE ON AT 9 A.M. RESUME YOUR HOME MEDICATIONS PER LIST PROVIDED BY THE NURSING STAFF PLEASE NOTE YOUR LASIX 40 MG PRN HAS BEEN CHANGED TO ONE-HALF TAB (20 MG) BY MOUTH EVERY MORNING ON AND EMPTY STOMACH NEW PRESCRIPTIONS 1) POTASSIUM (K-DUR) 20 MEQ, TAKE ONE TABLET BY MOUTH DAILY 2) NITROGLYCERIN 0.4 MG SUBLINGUALLY, PLACE ONE TABLET UNDER THE TONGUE NEEDED FOR CHEST PAIN, IF NOT RESOLVED MAY REPEAT EVERY 5 MINUTES FOR A TOTAL OF 3 PILLS. TAKE WHILE SITTING OR LYING DOWN. IF CHEST PAIN NOT RESOLVED, GO DIRECTLY TO THE EMERGENCY ROOM. ACTIVITY GET PLENTY OF REST AT HOME. GRADUALLY INCREASE YOUR ACTIVITY LEVEL ACCORDING TO YOUR TOLERATION DIET WEIGHT LOSS, HEALTHY HEART SUMMARY THE PATIENT IS ALERT AND ORIENTED X3. SHE CURRENTLY RESIDES AT HOME WITH HER SONS. SHE IS INDEPENDENT WITH ADL'S AND REQUIRES NO DME, HOME HEALTH OR HOMEMAKING SERVICES. SHE DESIRES TO RETURN HOME AT DISCHARGE. THE PATIENT WAS ADVISED REFERRAL FOR A HEART CATH. SHE HAS A GOOD UNDERSTANDING OF THE RESULTS OF HER SESTAMIBI TEST. SHE HAS DECLINED REFERRAL. SHE HAS RECEIVED TEACHING IN DETAIL REGARDING THE NEED FOR LIFESTYLE CHANGES SUCH WEIGHT LOSS, MEDICATION COMPLIANCE AND EXERCISE DAILY. SHE ALSO HAS RECEIVED TEACHING REGARDING ADMINISTRATION OF NITROGLYCERIN TABLETS. SHE HAS BEEN MADE AWARE THAT IF SHE HAS TAKEN THREE TABLETS AND HAS NOT GAINED RELIEF FROM HER CHEST PAIN TO GO DIRECTLY TO THE EMERGENCY ROOM. SHE IS INTELLIGENT AND HAS A GOOD UNDERSTANDING OF THESE INSTRUCTIONS. SHE IS AWARE OF THE POSSIBLE RISK OF DECLINING FURTHER CARDIAC WORK-UP. WE WILL FOLLOW HER THROUGH THE OFFICE. SHE MAKES KNOWN HER DESIRE FOR DISCHARGE TODAY. CURRENT CODE STATUS FULL CODE YOSELIN MUJICA M.D.
[2018-10-09] MEDS ORDERED: PREDNISONE PO SCH (08:00)
--- NOTE | 2018-10-11 11:18 | ECHOSTRESS ---
Date of Exam: 10/08/2018 Ordering Physician: DR. MUJICA Reason for Echo: CHEST PAIN, STRESS TEST = NO ISCHEMIA M-Mode Normal Adult Results LV Dimensions Normal Adult Results AoV Opening excursions >1.6 LVEDD-base- 3.5-5.8 Ao root dimensions 2.0-3.7 LVESD-base- 3.1-4.6 L. Atrium dimensions 1.9-3.8 Post. Wall thickness 0.8-1.1 IV septum (thickness) 0.7-1.2 Post. Wall excursion 0.72-1.3 Septal motion Systolic motion R. Ventricular cavity 1.5-2.0 LVEF 60% Paradoxical septal wall motion 2-D: NORMAL LEFT VENTRICULAR CONTRACTILITY RESTING AND POST EXERCISE M-MODE: MV: AV: TV: PV: CHAMBER SIZE: WALL MOTION: NORMAL LEFT VENTRICULAR CONTRACTILITY RESTING AND POST EXERCISE PERICARDIUM: INTERPRETATION: 1. NORMAL LEFT VENTRICULAR CONTRACTILITY RESTING AND POST EXERCISE MTDD
--- NOTE | 2018-10-11 11:29 | STECHESEMD ---
Date of Test: 10/08/2018 Ordering Physician: DR. MUJICA Occupation: DISABLED Reason for Exam: CHEST PAIN, HYPERTENSION Smoking History: NON-SMOKER Height : 64" Weight: 235 Current Medications: FUROSEMIDE, ARMOUR THYROID, LOSARTAN POTASSIUM, METOPROLOL TARTRATE, PREDNISONE, AMLODIPINE BESYLATE, HYDROCODONE/ACETAMINOPHEN Resting EKG: SINUS RHYTHM, INCOMPLETE RIGHT BUNDLE BRANCH BLOCK Target Heart Rate: 131 / 155 98% OXYGEN SATURATION AT REST ON ROOM AIR S-T SEGMENT STAGE MPH/GRADE HEART RATE BPM BLOOD PRESSURE mmhg RHYTHM +/- ELEVATION DEPRESSION SYMPTOMS At Rest 55 132/90 SR X NONE 1 1.7/0% 118 146/86 SR X NONE 2 1.7/5% 156/76 3 1.7/10% 4 2.5/12% 5 3.4/14% Immediately after 144 SR X SHORTESS OF BREATH Minutes Post Exercise 5 85 136/78 SR X NONE Minutes Post Exercise DURATION OF EXERCISE: 6 MINUTES AND 34 SECONDS MAXIMUM HEART RATE REACHED: 144 REASON FOR TERMINATION: SHORTNESS OF BREATH 93% OXYGEN SATURATION WITH EXERCISE ON ROOM AIR METS 4.0 INTERPRETATION: 1. NO EVIDENCE ISCHEMIA BY ST- T WAVE 2. NO CHEST PAIN OR DISCOMFORT 3. NO ARRHYTHMIAS WITH EXERCISE 4. BLOOD PRESSURE RESPONSE ADEQUATE 5. NORMAL LEFT VENTRICULAR CONTRACTILITY RESTING AND POST EXERCISE 6. SESTAMIBI TO FOLLOW MTDD
--- NOTE | 2018-10-12 12:56 | ECHO2D ---
Date of Exam: 10/08/18 Ordering Physician: YOSELIN MUJICA MD Room # : SCU-2 Reason for Echo: CHEST PAIN, HYPERTENSION M-Mode Normal Adult Results LV Dimensions Normal Adult Results AoV Opening excursions >1.6 >1.6 LVEDD-base- 3.5-5.8 5.2 Ao root dimensions 2.0-3.7 3.6 LVESD-base- 3.1-4.6 L. Atrium dimensions 1.9-3.8 4.0 Post. Wall thickness 0.8-1.1 1.2 IV septum (thickness) 0.7-1.2 1.4 Post. Wall excursion 0.72-1.3 NORMAL Septal motion NORMAL Systolic motion R. Ventricular cavity 1.5-2.0 4.0 LVEF 60% 57% Paradoxical septal wall motion 2-D : 2-D M Mode Echocardiogram was performed using apical four chamber and left parasternal long and short axis views. Mitral, tricuspid and aortic valves appear to be normal. Contractility of the left ventricle seems to be normal, so is the cavity size. Left atrial cavity size and aortic root appear to be normal. There is no pericardial effusion. There is no thrombus noted in the left ventricular or left aortic cavity. No mitral valve prolapse noted. M-MODE: MV: NORMAL AV: NORMAL TV: NORMAL PV: NORMAL CHAMBER SIZE: BORDERLINE LEFT ATRIAL CAVITY ENLARGED / RIGHT VENTRICLE CAVITY ENLARGED WALL MOTION: NORMAL PERICARDIUM: NORMAL INTERPRETATION: 1. LEFT VENTRICULAR HYPERTROPHY WITH BORDERLINE LEFT ATRIAL CAVITY / RIGHT ATRIAL CAVITY ENLARGED 2. NORMAL LEFT VENTRICULAR CONTRACTILITY 3. NORMAL VALVES MTDD
--- NOTE | 2018-10-12 12:57 | DS ---
DATE OF SERVICE: 10/08/18 FINAL DIAGNOSIS: CHEST PAIN-RESOLVED HYPERTENSION-IMPROVED CAD AND MA CHF VIRAL MYOCARDITIS CARDIOMYOPATHY FIBROMYALGIA LUPUS HERNIA TUBAL LIGATION LAST VITALS: Temp Pulse Resp BP Pulse Ox 97.8 F 73 14 148/76 H 99 10/08/18 05:13 10/08/18 05:13 10/08/18 05:13 10/08/18 05:13 10/08/18 05:13 DISCHARGE INSTRUCTIONS: DISCHARGE HOME TODAY, 10/08/18. RETURN TO SEE DR. MUJICA IN HIS OFFICE ON AT 9 A.M. RESUME YOUR HOME MEDICATIONS PER LIST PROVIDED BY THE NURSING STAFF. PLEASE NOTE YOUR LASIX 40 MG PRN HAS BEEN CHANGED TO ONE-HALF TAB (20 MG ) BY MOUTH EVERY MORNING ON AND EMPTY STOMACH. TAKE THESE MEDICATIONS AT HOME: Amlodipine Besylate (Norvasc) 5 mg PO BID MARLENE Aspirin 81 mg PO DIALY Furosemide (Lasix Tab) 20 mg PO DAILY Hydrocodone Bitart/Acetaminophen ([place] 7.5-325) 1 tab PO TID PRN Losartan Potassium (Cozaar) 100 mg PO DAILY MARLENE Metoprolol Tartrate (Lopressor) 25 mg PO BID MARLENE Nitroglycerin (Nitrostat) 0.4 mg SL Q5MIN X 3 DOSES PRN Thyroid,Pork [[place] Thyroid] 60 mg PO QDAC MARLENE Prednisone (Prednisone) 1 mg PO BEDTIME MARLENE Prednisone (Prednisone) 2 mg PO DAILYWM MARLENE ALLERGIES: Iodinated Contrast- Oral and IV Dye Adverse Reaction (Verified 10/07/18 02:48) Sulfa (Sulfonamide Antibiotics) Adverse Reaction (Verified 10/07/18 02:48) NEW PRESCRIPTIONS: Nitroglycerin 0.4 mg SL DIRECTED #30 tab.subl 10/08/18 Potassium Chloride [K-Dur] 20 meq PO DAILY #30 tab 10/08/18 HOME MEDICATION CHANGES: Furosemide [Lasix Tab] 40 MG, TAKE ONE-HALF TABLET (20 MG) OF YOUR CURRENT 40 MG TABLET EVERY MORNING ON AN EMPTY STOMACH SMOKING: FORMER SMOKER DISEASE SPECIFIC EDUCATION: NEED FOR REFERRAL FOR POSSIBLE CARDIAC CATH (PATIENT DECLINED REFERRAL) PATIENT'S BMI WAS DISCUSSED. WEIGHT LOSS WAS ADVISED WEIGHT LOSS DIET NTG PRN FOR CHEST PAIN PATIENT WAS ADVISED TO GO DIRECTLY TO THE ER IF NO RELIEF FROM NTG X3 PATIENT WAS ALSO ADVISED TO GO DIRECTLY TO ER AT ONSET OF CHEST PAIN IF SHE FEELS IT APPROPRIATE HOME MEDICATIONS LIFESTYLE CHANGES TO REDUCE RISKS OF CAD MEDICATON COMPLIANCE FOLLOW UP ACTIVITY: GET PLENTY OF REST AT HOME. GRADUALLY INCREASE YOUR ACTIVITY LEVEL ACCORDING TO YOUR TOLERATION DIET: WEIGHT LOSS, HEALTHY HEART HOSPITAL COURSE: Camelia Lambert was hospitalized with chest pain which was fairly atypical, center of the chest with tightness. The patient's EKG shows right bundle branch with no acute changes. Practically the EKG's were unchanged. Cardiac markers were negative. During the stay in the hospital the patient continued to have some chest discomfort like she described like she explained with no ST-T wave change. She has this type of discomfort nonexertional for several months. The patient is noncompliant of diet and her medications. She said that she hasn't been taking her medications regularly but she was started on all her medications like Cozaar, Lopressor, Norvasc. She was advised to lose weight. The patient underwent Echo which showed LVH with normal LV contractility. Dobutamine Stress was negative for ischemia but sestamibi part was positive for inferior lateral wall reversible ischemia. She was explained about these findings and advised to stay for one more day for the adjustment of some of the medications could be done. She flatly declined. I also recommended her to have cardiac catheterization done and she said she is not going to have cardiac catheterization done. She said that "I would let you know when I want it." In the mean time the patient said that she is going to try and lose weight and take her medications regularly. The patient is to be seen on Thursday morning 9: 00am on followup. The patient was advised to go to the nearest emergency room incase if she starts having chest pain. Nitroglycerin was given otherwise she was advised to take Lasix 20mg everyday and K-tab 20meq daily. DASH diet with low salt diet discussed with her. BMI is more than 35. She is advised to lose weight. That will be her cholesterol down and also her blood pressure down. NON HDL goal is 100. Discussed with her and she is very reluctant to change of any of the medications for now. It is to be noted that the patient had required a lot of explanation and pleading before she every got into the hospital. Everyday she wanted to go home. CONDITION: Stable. TIME SPENT: More than 60 minutes. RAYMOND
--- NOTE | 2018-10-12 12:58 | PN ---
10/07/18: Level 5 10/08/18: D as in discharge MTDD
== END 2018-10-08 14:50 | disposition home or self-care (01) | DRG 304 ==
LOC: ED 02:28 → INTOOBSV 03:37 → SCU 03:37 → OBSVTOIN 03:37
PROVIDERS: ADMIT Internal Medicine; ATTEND Internal Medicine
DX: I10 Essential (primary) hypertension (principal); I40.0 Infective myocarditis; I42.9 Cardiomyopathy, unspecified; I25.2 Old myocardial infarction; I25.10 Atherosclerotic heart disease of native coronary artery without angina pectoris; I50.9 Heart failure, unspecified; M79.7 Fibromyalgia; M25.512 Pain in left shoulder; E03.9 Hypothyroidism, unspecified; E66.9 Obesity, unspecified; R60.0 Localized edema; Z68.35 Body mass index [BMI] 35.0-35.9, adult; Z91.19 Patient's noncompliance with other medical treatment and regimen; Z71.3 Dietary counseling and surveillance
CPT/HCPCS: 36415; 80053; 82550; 83036; 84439; 84443; 84484; 85025; 87081; 93005; 93010; 99285

== ENCOUNTER 2019-01-21 09:50 | Outpatient (CLI) ==
--- NOTE | 2019-01-21 13:27 | DEXA ---
EXAM: Bone densitometry. History: Long-term steroid use Findings: Evaluation of the lumbar spine reveals a total bone mineral density of 1.063 grams per centimeter squ ared with T-score of negative 1.0. Evaluation of the left hip reveals a total bone mineral density of 0.851 grams per centimeter squared with T-score of negative 1.2. Evaluation of the right hip reveals a total bone mineral density of 0.883 grams per centimeter square d with T-score of negative 1.0. FRAX: 10-year probability for major osteoporotic fractures is 13.7% and 1.8% for hip fracture. Impression: 1. Normal bone mineral density of the lumbar spine and right hip. 2. Osteopenia of the left hip
== END 2019-01-21 09:51 | disposition home or self-care (01) ==
LOC: RAD 09:50
PROVIDERS: ATTEND Internal Medicine Rheumatology
DX: Z79.52 Long term (current) use of systemic steroids (principal)